=== PATIENT | male | born 1975 | race Asian ===

== ENCOUNTER 2017-06-16 07:31 | Emergency (ER) | payer BC ==
[~2017-06-16] VITALS: Wt 77.3 kg
[~2017-06-16 07:31] MED LIST: CEPHALEXIN500 M1 PO; CLEOCIN HCL300 MG PO; SEPTRA DS 8001 TAB PO
[2017-06-16 07:41] VITALS: TEMP 98.3
[2017-06-16] MEDS ORDERED: HYZAAR 50-12.1 UDTAB PO (07:47)
[2017-06-16 08:40] LABS: HEMATOCRIT 46.7 % (42.0-52.0); HEMOGLOBIN 15.2 g/dl (13.5-18.0); MEAN CELL VOLUME 94 fl (80.0-100.0); MEAN CORPUSCULAR HEMOGLOBIN 31 pg (27.0-31.0); MEAN CORPUSCULAR HGB CONC 33 g/dl (33.0-37.0); MEAN PLATELET VOLUME 10.2 fl (7.4-10.4); PLATELET COUNT 155 K/mm3 (130-400); RED BLOOD COUNT 4.95 M/mm3 (4.20-5.60); REDCELL DISTRIBUTION WIDTH-CV 12.6 % (11.5-14.5)
[2017-06-16 08:55] LABS: ALBUMIN 4.4 gm/dL (3.5-5.0); BILIRUBIN,TOTAL 0.6 mg/dL (0.0-1.0); C-REACTIVE PROTEIN 5.3 mg/dL (0.0-0.9); CALCIUM 8.9 mg/dL (8.4-10.2); POTASSIUM 3.4 mmol/L (3.4-5.0); TOTAL PROTEIN 7.6 gm/dL (6.4-8.2)
[2017-06-16 09:04] LABS: COLLECTION METHOD CLEAN CATCH
[2017-06-16 09:10] LABS: BAND 35 % (0-10); EOSINOPHIL 2 % (0-4); LYMPHOCYTE 20 % (20.0-51.0); NEUTROPHILS 26 % (42.0-75.2); PLATELET ESTIMATE NORMAL (NORMAL)
[2017-06-16 09:11] LABS: STOMATOCYTE 1+
[2017-06-16 09:13] LABS: MUCOUS Present /lpf; PH 6 (5-8); SQUAMOUS EPITHELIAL 0-2 /hpf; URINE APPEARANCE Hazy; URINE BACTERIA None Seen /hpf; URINE BILIRUBIN Negative (NEGATIVE); URINE BLOOD Negative (NEGATIVE); URINE COLOR Amber; URINE GLUCOSE Negative (NEGATIVE); URINE KETONE Negative (NEGATIVE); URINE LEUKOCYTE ESTERASE Negative (NEGATIVE); URINE NITRATE Negative (NEGATIVE); URINE PROTEIN(semi-quant) 1+ (NEGATIVE); URINE UROBILINOGEN Negative (NEGATIVE)
[2017-06-16] MEDS ORDERED: ZOFRAN ODT4 MG PO (10:05)
[2017-06-16 10:29] VITALS: BP 111/76; PULSE 76
== END 2017-06-16 10:31 | disposition home or self-care (01) ==
LOC: COL.ER 07:31
PROVIDERS: Physician Assistant
DX: K52.9 Noninfective gastroenteritis and colitis, unspecified (principal)
CPT/HCPCS: J2405; J7030; Q9967

== ENCOUNTER 2018-07-21 19:08 | Emergency (ER) | payer BC ==
[~2018-07-21] VITALS: Ht 177.8 cm; Wt 79.1 kg
[~2018-07-21 19:08] MED LIST changes: +HYZAAR 50-12.1 UDTAB PO; +ZOFRAN ODT4 MG PO
[2018-07-21 19:11] VITALS: TEMP 99.3
[2018-07-21 19:43] LABS: BASO % 0.3 % (0.0-2.0); GRAN # 6.2 (1.4-6.5); GRAN % 86.1 % (42.2-75.2); HEMATOCRIT 44.6 % (42.0-52.0); HEMOGLOBIN 14.7 g/dl (13.5-18.0); LYMPH # 0.5 (1.2-3.4); LYMPH % 6.7 % (20.0-51.0); MEAN CELL VOLUME 93 fl (80.0-100.0); MEAN CORPUSCULAR HEMOGLOBIN 31 pg (27.0-31.0); MEAN CORPUSCULAR HGB CONC 33 g/dl (33.0-37.0); MEAN PLATELET VOLUME 10.1 fl (7.4-10.4); MONO # 0.5 (0.1-0.6); MONO % 6.6 % (1.7-9.3); PLATELET COUNT 164 K/mm3 (130-400); RED BLOOD COUNT 4.78 M/mm3 (4.20-5.60); REDCELL DISTRIBUTION WIDTH-CV 12.9 % (11.5-14.5)
[2018-07-21 19:55] LABS: ALBUMIN 4.1 gm/dL (3.5-5.0); BILIRUBIN,TOTAL 1.2 mg/dL (0.0-1.0); CALCIUM 8.7 mg/dL (8.4-10.2); CREATININE, serum 0.93 mg/dL (0.66-1.25); POTASSIUM 3.8 mmol/L (3.4-5.0); TOTAL PROTEIN 7.1 gm/dL (6.4-8.2)
[2018-07-21] MEDS ORDERED: ZOFRAN ODT4 MG PO (20:35)
[2018-07-21 20:50] VITALS: BP 121/81; PULSE 102
== END 2018-07-21 20:50 | disposition home or self-care (01) ==
LOC: COL.ER 19:08
PROVIDERS: Emergency Medicine
DX: R11.2 Nausea with vomiting, unspecified (principal); R19.7 Diarrhea, unspecified; I10 Essential (primary) hypertension
CPT/HCPCS: J2405; J2550; J7030